=== PATIENT | female | born 1955 | race American Indian/Alaskan Native ===

== ENCOUNTER 2020-02-25 12:50 | Outpatient (CLI) | payer MEDICARE | END 2020-02-25 12:51 | disposition home or self-care (01) | LOC: SPVWC 12:50 | PROVIDERS: ATTEND Student in an Organized Health Care Education/Training Program | DX: Z12.31 Encounter for screening mammogram for malignant neoplasm of breast (principal) | CPT/HCPCS: 77067 ==

== ENCOUNTER 2020-04-19 10:37 | Outpatient (CLI) | payer MEDICARE ==
--- NOTE | 2020-04-19 12:03 | Mammography Report ---
RIGHT DIGITAL DIAGNOSTIC MAMMOGRAM WITH CAD CONVENTIONAL, 04/19/2020 RIGHT LIMITED BREAST ULTRASOUND CLINICAL INFORMATION / INDICATION: F/U abnormal mammogram TECHNIQUE: Digital right mammographic imaging was performed. Spot compression views were obtained. Li mited ultrasound was performed. This examination was interpreted with the benefit of Computer-Aided D etection (CAD) analysis. COMPARISON: 02/25/2020 FINDINGS: Breast Density: There are scattered areas of fibroglandular density. MAMMOGRAPHIC FINDINGS: Nodular density seen on original mammogram persist on spot compression views t here is a second nodular density with adjacent calcification in the 6:00 position closer to the nippl e. ULTRASOUND FINDINGS: Targeted ultrasound evaluation was performed of the area of interest. 2 nodule s are identified in the 6:30 position of the right breast. Corresponding to the mammographic abnormal ity described originally there is a 5 x 2 x 3 cm solid nodule with mildly irregular margins. In the 7 :00 position 3 cm from the nipple there is a 5 mm nodule which shows some shadowing and the margins a re somewhat irregular. IMPRESSION: There are 2 mildly suspicious nodules in the inferior right breast. Ultrasound-guided bio psy is recommended. Follow up recommendation: Biopsy BI-RADS Category 4: Suspicious for Malignancy. A "normal" or negative report should not discourage follow up or biopsy of a clinically significant f inding. A written summary of these findings will be mailed to the patient. The patient will be entered into a mammography reporting system which will generate a reminder letter for the patient's next appointmen t at the appropriate interval. According to the [employer], yearly mammograms are recommended starting at age 40 and continuing as long as a woman is in good health. Breast MRI is recommended for women with an randall roximately 20-25% or greater lifetime risk of breast cancer, including women with a strong family his tory of breast or ovarian cancer and women who have been treated for Hodgkin's disease. Signer Name: Maximo Nunez MD Signed: 04/19/2020 11:59 AM Workstation Name: [id number]
== END 2020-04-19 10:38 | disposition home or self-care (01) ==
LOC: SPVWC 10:37
PROVIDERS: ATTEND Student in an Organized Health Care Education/Training Program
DX: N63.13 Unspecified lump in the right breast, lower outer quadrant (principal)

== ENCOUNTER 2020-05-11 12:25 | Outpatient (CLI) | payer MEDICARE ==
--- NOTE | 2020-05-11 14:22 | Mammography Report ---
RIGHT DIAGNOSTIC MAMMOGRAM INDICATION: Status post biopsy of 2 areas in the right breast. COMPARISON: 04/19/2020, 02/25/2020. FINDINGS: Right breast CC and LM projection mammograms were obtained. These document accurate locatio n of a U-shaped biopsy marker (site of 7:00 biopsy) and Hydromark biopsy marker (site of 6:30 biopsy) . The biopsy markers appear appropriately positioned. IMPRESSION: Right breast mammograms documenting accurate location of U shaped biopsy marker (site of 7:00 biopsy) and Hydromark biopsy marker (site of 6:30 biopsy). BI-RADS Category 4: Suspicious for Malignancy. Signer Name: Kodak Ayoub MD Signed: 05/11/2020 2:17 PM Workstation Name: [id number]
--- NOTE | 2020-05-11 14:34 | Ultrasound Report ---
ULTRASOUND-GUIDED CORE NEEDLE BIOPSY Right BREAST WITH CLIP PLACEMENT (x2) INDICATION: 04/19/2020, 02/25/2020. FINDINGS: Informed consent was obtained. The lesion within the right breast at the 7:00 position, 3 cm from the nipple, was identified with ultrasound. The overlying skin was cleansed with chloro prep and local a nesthesia was obtained with a 1% lidocaine solution. Under ultrasound guidance a 14-gauge spring load ed core biopsy needle was advanced to the lesion. A total of 4 core samples were obtained. The lesion appeared to collapse completely after the first sampling suggesting it is primarily composed of cyst ic elements. A U-shaped biopsy marker was placed to gini the site of the biopsy. The lesion within the right breast at the 6:30 position, 7 cm from the nipple, was identified with ul trasound. The overlying skin was cleansed with chloro prep and local anesthesia was obtained with a 1 % lidocaine solution. Under ultrasound guidance a 14-gauge spring loaded core biopsy needle was advan justine to the lesion. A total of 3 core samples were obtained. The lesion appeared to collapse completel y after the first sampling suggesting it is primarily composed of cystic elements. A biopsy marker wa s placed to gini the site of the biopsy. Specimen samples were placed in formalin and sent to [facility] for analysis. Patient tolerated the procedure well and no immediate complications were identified. A post procedure mammogram demonstrates accurate placement of the biopsy marker. IMPRESSION: Technically successful ultrasound-guided core biopsy of right breast lesion at the 7:00 position with accurate placement of a U-shaped biopsy marker. Technically successful ultrasound-guided core biopsy of right breast lesion at the 6:30 position with placement of a Hydromark biopsy marker. An addendum will be added to this report once pathology results are available. Signer Name: Kodak Ayoub MD Signed: 05/11/2020 2:29 PM Workstation Name: [id number]
== END 2020-05-11 12:26 | disposition home or self-care (01) ==
LOC: SPVWC 12:25
PROVIDERS: ATTEND Student in an Organized Health Care Education/Training Program
DX: N63.13 Unspecified lump in the right breast, lower outer quadrant (principal); N64.89 Other specified disorders of breast; R92.0 Mammographic microcalcification found on diagnostic imaging of breast
CPT/HCPCS: 88305